=== PATIENT | female | born 2000 | race Caucasian/White ===

== ENCOUNTER 2020-06-16 22:04 | Emergency (ER) | payer SELFPAY ==
[2020-06-16 22:06] VITALS: BP 146/90; PULSE 84; RESP 18; TEMP 36.4; O2SAT 100
--- NOTE | 2020-06-16 22:43 | ED.DENTAL ---
HPI - Dental/Oral General Chief complaint: Dental/Oral Stated complaint: dental pain Time Seen by Provider: 06/16/20 22:38 Source: RN notes reviewed History of Present Illness HPI Narrative: Patient presents emergency department from home for dental pain. Patient states she is a carious right upper molar that is been hurting since yesterday. She denies any trauma or injury to the area states she tried taking Tylenol ibuprofen at home with last dose at noon today with no relief patient denies any fever chills vision changes or any other symptoms states she is allergic to penicillin and has had to be on clindamycin before in the past for dental abscess patient states she is currently on Flagyl for diagnosed with bacterial vaginosis denies Review of Systems Review of Systems: Narrative: Gen.: Denies fevers or chills HEENT: See HPI Neuro: Denies numbness, tingling, weakness Skin: Denies rash Endo: Denies DM PMFSH Past Medical History Medical History (Updated 06/16/20 @ 22:45 by Jacky Najera DO) Patient denies significant medical history Social History Social History (Updated 06/16/20 @ 22:44 by Jacky Najera DO) Smoking status: Never smoker Exam Narrative: Exam Narrative: APPEARANCE: No acute distress, nontoxic, resting in bed HEENT: Normocephalic, atraumatic, TMs clear bilaterally, nares patent, oral mucosa moist, airway patent, tooth #1 is carious and tender palpation mild erythema of the gum with no fluctuance there is no overlying swelling facial swelling or erythema RESPIRATORY: No respiratory distress MUSCULOSKELETAl: Moves all extremities. NEURO: Awake and alert. Following commands, speech normal, no focal deficits SKIN:: Warm, dry. Normal Color PSYCHIATRIC: Normal affect/mood Course Course Emergency Course: Discussed with patient results of workup and diagnosis. Discussed need for follow-up with primary care, proper use of medication, and reasons to return to the emergency department. Patient understands and agrees to current treatment plan Vital Signs Vital signs: Vital Signs Temperature 97.5 F L 06/16/20 22:06 Pulse Rate 84 06/16/20 22:06 Respiratory Rate 18 06/16/20 22:06 Blood Pressure 146/90 H 06/16/20 22:06 Pulse Oximetry 100 06/16/20 22:06 Temperature 97.5 F L 06/16/20 22:06 Pulse Rate 84 06/16/20 22:06 Respiratory Rate 18 06/16/20 22:06 Blood Pressure 146/90 H 06/16/20 22:06 Pulse Oximetry 100 06/16/20 22:06 Discharge Plan Discharge Clinical Impression: Dental abscess Patient Disposition: Home, Self-Care Condition: Stable Instructions: Antibiotic Form, Dental Abscess (ED) Additional Instructions: Return for increasing pain fever or any other symptoms of concern Prescriptions: New clindamycin HCl 300 mg capsule 300 mg PO Q8H Qty: 30 RF: 0 ibuprofen [IBU] 600 mg tablet 600 mg PO Q6H PRN (Reason: pain) Qty: 10 RF: 0 Follow-up/Referrals: [facility] [place] [Outside] - 2 Days [facility] [Outside] - 2 Days PHYSICIAN NOT ON STAFF,NONSTAFF [Primary Care Provider] - Stand Alone Forms: Work/School Release IP Time of Disposition: 22:46
[2020-06-16] MEDS: CLINDAMYCIN HCL 150 MG CAP 300 MG PO (22:50)
[2020-06-16] MEDS: IBUPROFEN 600 MG TABLET PO (22:50)
== END 2020-06-16 23:07 | disposition home or self-care (01) ==
LOC: ANHED 22:54
PROVIDERS: Emergency Provider Emergency Medicine
DX: K04.7 Periapical abscess without sinus (principal)
CPT/HCPCS: 99283; A9270

== ENCOUNTER 2020-07-11 11:23 | Outpatient (CLI) | payer OTHER, SELFPAY ==
--- NOTE | ~2020-07-11 | US_ITS ---
EXAMINATION: US pelvic complete EXAM DATE: 07/11/2020 11:41 INDICATION: N91.2 Amenorrhea, unspecified. TECHNIQUE: Pelvic transabdominal sonogram was performed. There are multiple grayscale and Doppler im ages available for interpretation. There is no prior study for comparison. FINDINGS: Uterus measures 7.8 x 3.2 x 4.7 cm, and is morphologically normal. Endometrial stripe nkechi sures 6 mm, within normal limits. There is no free pelvic fluid. Right adnexa: The ovary measures 3.7 x 2.2 x 3.1 cm and is morphologically normal. Ovarian vascular f low confirmed. Left adnexa: The ovary measures 2.4 x 1.8 x 2.6 cm and is morphologically normal. Ovarian vascular fl ow confirmed. IMPRESSION: Unremarkable pelvic ultrasound exam. Reviewed, dictated and finalized at location A.
== END 2020-07-11 11:24 ==
PROVIDERS: Visit Provider Nurse Practitioner
DX: N91.2 Amenorrhea, unspecified (principal)
CPT/HCPCS: 76856

== ENCOUNTER 2021-08-01 13:05 | Emergency (ER) | payer BC, SELFPAY ==
--- NOTE | ~2021-08-01 | XR_ITS ---
EXAMINATION: XR chest 2V DATE: 08/01/2021 13:35 INDICATION: Midsternal chest pain. TECHNIQUE: Frontal and lateral views of the chest were obtained. COMPARISON: None. FINDINGS: The chest demonstrates clear lungs without pneumonia, pleural effusion, or pneumothorax. Th e heart size is normal. IMPRESSION: 1. No acute cardiopulmonary disease. Reviewed, dictated and finalized at location A.
--- NOTE | 2021-08-01 13:07 | ECG_ITS ---
Measurements Intervals [place] Rate: 75 P: 12 MT: 167 QRS: 38 QRSD: 85 T: 23 QT: 350 QTc: 391 Interpretive Statements SINUS RHYTHM NORMAL ECG Electronically Signed On 08-01-2021 13:20:52 CDT by Ponce Sandoval D.O.
[2021-08-01 14:38] LABS: Basophils Percent Auto 0.2 % (0.2-1.2); Eosinophils Absolute Auto 0.1 K/mm3 (0-0.3); Eosinophils Percent Auto 1.4 % (0-4.4); Hematocrit 40.6 % (37.0-47.0); Hemoglobin 12.9 g/dL (12.0-15.0); Immature Granulocyte Absolute 0.02 K/mm3 (0.00-0.031); Immature Granulocyte Percent A 0.2 % (0-0.5); Lymphocytes Absolute Auto 3.72 K/mm3 (0.9-3.2); Lymphocytes Percent Auto 44.7 % (18.3-44.2); Mean Corpuscular HGB Conc 31.8 g/dl (32-36); Mean Corpuscular Hemoglobin 30.7 pg (26-34); Mean Corpuscular Volume 96.7 fl (80-100); Mean Platelet Volume 10.3 fl (7.4-10.4); Monocytes Absolute Auto 0.5 K/mm3 (0.1-0.6); Monocytes Percent Auto 5.9 % (2.6-8.5); Neutrophils Percent Auto 47.6 % (45.5-73.1); Platelet Count Result 338 k/mm3 (150-375); Red Cell Distribution Width 12.4 % (11.5-14.5); White Blood Count 8.3 K/mm3 (4.5-10.0)
[2021-08-01 14:50] LABS: Alanine Aminotransferase 37 U/L (4-35); Albumin Level 4.5 g/dL (3.5-5.1); Alkaline Phosphatase 86 U/L (38-126); Anion Gap 7 mmol/L (8-16); Aspartate Amino Transferase 37 U/L (14-36); Bilirubin,Total 0.3 mg/dL (0.2-1.3); Blood Urea Nitrogen 12 mg/dL (7-17); Calcium 10.3 mg/dL (8.4-10.2); Carbon Dioxide 27 mmol/L (22-30); Chloride 104 mmol/L (98-107); Estimated CRCL calculation 148 ml/min; Estimated Glomerular Filt Rate > 60; Glucose 101 mg/dL (65-110); Lipase 69 U/L (23-300); Potassium 4.2 mmol/L (3.4-5.0); Sodium 138 mmol/L (137-145)
[2021-08-01 15:00] LABS: Troponin I < 0.012 ng/mL (0.000-0.034)
[2021-08-01 15:01] LABS: INR 1.1; Prothrombin Time 14.1 Seconds (11.1-14.7)
[2021-08-01 15:02] LABS: Partial Thromboplastin Time 27.7 SECONDS (22.3-36.8)
[2021-08-01 15:35] VITALS: BP 119/80; PULSE 101; PULSE 80; RESP 18; TEMP 36.9; O2SAT 99
--- NOTE | 2021-08-01 15:58 | ED.CHESTPAIN ---
HPI - Chest Pain General Chief Complaint: Chest Pain Stated Complaint: chest pain Time Seen by Provider: 08/01/21 15:13 Source: patient and RN notes reviewed Mode of arrival: ambulatory Limitations: no limitations History of Present Illness HPI narrative: 20-year-old female presenting to the emergency department for evaluation of epigastric and chest pain which she describes as a pressure and tightness. Patient states that she has no prior history of coronary artery disease and denies any prior history of PE or DVT. Patient states that 2 days ago she started a drastic diet and did take supplementary magnesium citrate and potassium. Patient states since starting the new diet that she has had these symptoms. Patient also reported some exertional shortness of breath. Patient denies any significant past medical history. Related Data Allergies Allergy/AdvReac Type Severity Reaction Status Date / Time albuterol Allergy Swelling Verified 08/01/21 15:38 of Lip/Tongue/Throat Penicillins Allergy Difficulty Verified 08/01/21 15:38 Breathing Review of Systems Review of Systems: CONSTITUTIONAL: Denies fever, chills, or sweats. EYES: Denies visual changes, redness, or discharge. ENT: Denies rhinorrhea, congestion, sore throat, or otalgia. CARDIOVASCULAR: See HPI RESPIRATORY: Denies cough or dyspnea. GASTROINTESTINAL: Nausea without vomiting, see HPI GENITOURINARY: Denies dysuria or hematuria. SKIN: Denies rash or itching. MUSCULOSKELETAL: Right lower extremity edema, normal for baseline. NEUROLOGIC: Denies headache, numbness, or weakness. PMFSH Past Medical History Medical History (Updated 08/01/21 @ 17:44 by Sumit Davidson MD) Patient denies significant medical history Social History Social History (Updated 06/16/20 @ 22:44 by Jacky Najera DO) Smoking status: Never smoker Exam Narrative: APPEARANCE: Well appearing, no pain, no distress, well-nourished. HEAD: normocephalic, atraumatic. EYES: PERRLA/EOMI, conjunctivae clear. NOSE: Normal no drainage THROAT: Pharynx clear, no exudate. NECK: Supple. No adenopathy, no masses. RESPIRATORY: Airway patent, respirations nonlabored. Clear to auscultation bilaterally, no rales, rhonchi, wheezing. CARDIOVASCULAR: Regular rate and rhythm without murmurs rubs or gallops. ABDOMINAL: Soft, nontender, nondistended, normal bowel sounds MUSCULOSKELETAL: Moves all extremities. Strength/ROM intact, No edema, No calf tenderness. NEURO: Alert. Cranial nerves II through XII intact. Grossly intact SKIN: Warm, dry. Normal Color Course Course Emergency Course: Patient did feel improved with treatment. Patient did have normal EKG, chest x-ray showed no acute finding. Serial troponins were negative. Vital Signs Vital signs: Vital Signs Temperature 98.4 F 08/01/21 15:35 Pulse Rate 101 H 08/01/21 15:35 Respiratory Rate 18 08/01/21 15:35 Blood Pressure 119/80 08/01/21 15:35 Pulse Oximetry 99 08/01/21 15:35 Temperature 98.4 F 08/01/21 15:35 Pulse Rate 80 08/01/21 15:35 Respiratory Rate 18 08/01/21 15:35 Blood Pressure 119/80 08/01/21 15:35 Pulse Oximetry 99 08/01/21 15:35 MDM - Chest Pain Differential Diagnosis Differential diagnosis: Likely atypical chest pain Lab Data Attestation: I reviewed the patient's lab results. Result diagrams: 08/01/21 14:25 08/01/21 14:25 Labs: Lab Results 08/01/21 08/01/21 08/01/21 Range/Units 14:25 14:25 14:25 WBC 8.3 (4.5-10.0) K/mm3 RBC 4.20 (4.2-5.4) M/mm3 Hgb 12.9 (12.0-15.0) g/dL Hct 40.6 (37.0-47.0) % MCV 96.7 (80-100) fl MCH 30.7 (26-34) pg MCHC 31.8 L (32-36) g/dl RDW 12.4 (11.5-14.5) % Plt Count 338 (150-375) k/mm3 MPV 10.3 (7.4-10.4) fl Immature Gran % (Auto) 0.2 (0-0.5) % Neut % (Auto) 47.6 (45.5-73.1) % Lymph % (Auto) 44.7 H (18.3-44.2) % Boundary % (Auto) 5.9 (2.6-8.5) % Eos
[2021-08-01 16:42] LABS: D Dimer < 0.27 ug/mL (<0.48)
[2021-08-01 17:20] LABS: Troponin I < 0.012 ng/mL (0.000-0.034)
[2021-08-01 18:55] VITALS: BP 121/76; PULSE 78; RESP 18; O2SAT 100
== END 2021-08-01 18:55 | disposition home or self-care (01) ==
PROVIDERS: Emergency Medicine; Emergency Provider Emergency Medicine
DX: R10.13 Epigastric pain (principal)
CPT/HCPCS: 36415; 71046; 80053; 83690; 84484; 85025; 85380; 85610; 85730; 93005; 99284

== ENCOUNTER 2022-01-05 13:23 | Emergency (ER) | payer BC, SELFPAY ==
--- NOTE | ~2022-01-05 | XR_ITS ---
EXAMINATION: XR ankle RT min 3V INDICATION: Right ankle pain TECHNIQUE: Four views of the right ankle are obtained. COMPARISON: None available FINDINGS: There is plate and screw fixation in the lateral aspect of the distal fibula. Bone alignmen t is normal. There is a tiny heterotopic osseous fragment distal to the medial malleolus. Ankle morti se is intact. IMPRESSION: 1. Tiny heterotopic osseous fragment distal to the medial malleolus with an appearance suggestive of prior avulsion injury. Reviewed, dictated and finalized at location A. IMPRESSION: 1. Tiny heterotopic osseous fragment distal to the medial malleolus with an varghese earance suggestive of prior avulsion injury.
[2022-01-05 13:37] VITALS: BP 135/85; PULSE 99; RESP 18; TEMP 36.4; O2SAT 100
--- NOTE | 2022-01-05 16:29 | ED.EXTPRO ---
HPI - Extremity Problem General Chief complaint: Extremity Problem,Nontraumatic Stated complaint: R ANKLE PAIN Time Seen by Provider: 01/05/22 15:51 Source: patient Mode of arrival: ambulatory Limitations: no limitations History of Present Illness HPI Narrative: Patient is a 21 y/o female who presents to the ED with c/o R ankle pain. Patient reports she was at work last night and frequently walks up and down stairs. She woke up this morning with pain in her right anteromedial ankle. No definitive injury. No abnormal twisting that she is aware of. Previous R ankle ORIF several years ago. No numbness/tingling. No significant swelling. She is able to ambulate but has pain with this. Related Data Allergies Allergy/AdvReac Type Severity Reaction Status Date / Time albuterol Allergy Swelling Verified 01/05/22 16:18 of Lip/Tongue/Throat Penicillins Allergy Difficulty Verified 01/05/22 16:18 Breathing Review of Systems Review of Systems: CONSTITUTIONAL: Denies fever, chills, or sweats. SKIN: Denies R ankle swelling. MUSCULOSKELETAL: Reports R ankle pain. NEUROLOGIC: Denies tingling, numbness, or weakness. All systems reviewed & are unremarkable except as noted in HPI and below PMFSH Past Medical History Medical History (Updated 01/05/22 @ 17:20 by Nano Oreilly PA-C) No pertinent past medical history Surgical History Surgical History (Updated 01/05/22 @ 17:20 by Nano Oreilly PA-C) Status post ORIF of fracture of ankle Social History Social History Smoking status: Never smoker Exam Narrative: GENERAL: Well appearing, morbidly obese, non-toxic, in no acute distress. HEAD: Normocephalic, atraumatic. NECK: Supple. No adenopathy, no masses. RESPIRATORY: Airway patent, respirations nonlabored. Clear to auscultation bilaterally, no rales, rhonchi, wheezing. CARDIOVASCULAR: Regular rate and rhythm without murmurs, rubs, or gallops. Peripheral pulses 2+ and equal bilaterally. MUSCULOSKELETAL: Moves all extremities. Strength/ROM intact without gross deformities. Mild limited ROM of R ankle due to pain. TTP over R anterior and medial ankle, with direct tenderness over medial malleolus. No tenderness along metatarsals, Achilles tendon, calf, anterior knee. SKIN: Warm, dry, normal color. No rashes. NEURO: A&O X3. Speech clear. Cranial nerves II-XII grossly intact. No ataxic movements. PSYCHIATRIC: Appropriate mood and affect. Normal interaction. Course Vital Signs Vital signs: Vital Signs Temperature 97.6 F 01/05/22 13:37 Pulse Rate 99 01/05/22 13:37 Respiratory Rate 18 01/05/22 13:37 Blood Pressure 135/85 01/05/22 13:37 Pulse Oximetry 100 01/05/22 13:37 Oxygen Delivery Room Air 01/05/22 13:37 Temperature 97.6 F 01/05/22 13:37 Pulse Rate 99 01/05/22 13:37 Respiratory Rate 18 01/05/22 13:37 Blood Pressure 135/85 01/05/22 13:37 Pulse Oximetry 100 01/05/22 13:37 Oxygen Delivery Room Air 01/05/22 13:37 MDM - Extremity (Nontraumatic) MDM Narrative Medical decision making narrative: Patient presented to ED with acute onset of right ankle pain upon waking this morning. No known injury. Tenderness over anterior medial ankle. Neurovascularly intact. No signs of compartment syndrome. X-ray obtained showing abnormality of medial malleoli, suggestive of avulsion injury. I discussed with Dr. Way who reported difficult to determine acute versus chronic, but if patient has tenderness in that region, would consider acute. Patient does have direct tenderness over medial malleoli. Discussed recommendation to place patient in a splint for further fracture management. Patient refused a splint at this time as she has to drive home and does not have a ride otherwise. She will sign AMA paperwork for refusing splint however I will still provide orthopedic follow-up information and discharge packet. Meredith
== END 2022-01-05 17:20 | disposition home or self-care (01) ==
LOC: ANHED 17:08
PROVIDERS: Emergency Provider Emergency Medicine
DX: S82.51XA Displaced fracture of medial malleolus of right tibia, initial encounter for closed fracture (principal); X58.XXXA Exposure to other specified factors, initial encounter
CPT/HCPCS: 73610; 99283; 99284

== ENCOUNTER 2023-09-09 21:59 | Emergency (ER) | payer BC, SELFPAY ==
--- NOTE | ~2023-09-09 | XR_ITS ---
XR hand RT min 3V Ordering provider: Petra Miguel MD History: . pain, injury . Comparison: None. FINDINGS: BONES: No acute fracture or dislocation. JOINT SPACES: Well maintained. SOFT TISSUES: Unremarkable. IMPRESSION: No acute osseous abnormality right hand. Reviewed, dictated and finalized at location A.
[2023-09-09 22:02] VITALS: BP 145/92; PULSE 110; RESP 20; TEMP 36.2; O2SAT 100
--- NOTE | 2023-09-09 23:23 | ED.GENADULT ---
HPI - General Adult General Chief complaint: Extremity Injury, Upper Stated complaint: hand injury Time Seen by Provider: 09/09/23 23:22 History of Present Illness HPI narrative: Patient is a 22-year-old female who presents to the emergency department this evening complaining of right thumb pain. Patient states that she was using a staple alert at work and thinks she may have hyperextended her right thumb. Shortly after patient started to have some pain. Denies any falls or recent trauma. Patient is currently able to fully extend and flex her right thumb without any difficulty. Related Data Allergies Allergy/AdvReac Type Severity Reaction Status Date / Time albuterol Allergy Swelling Verified 01/07/22 13:28 of Lip/Tongue/Throat Penicillins Allergy Difficulty Verified 01/07/22 13:28 Breathing Sulfa (Sulfonamide Allergy Hives Verified 09/09/23 22:19 Antibiotics) Review of Systems Review of Systems: All systems are reviewed and are negative unless stated otherwise in the HPI. ON LICENSE OF [facility] Past Medical History Medical History No pertinent past medical history Surgical History Surgical History H/O eye surgery History of ankle surgery (~2019) right ankle Status post ORIF of fracture of ankle Social History Social History Smoking status: Never smoker Alcohol intake: never Substance use: never Exam Narrative: General: Alert, awake, afebrile, in no acute distress. HEENT: PERRL, no rhinorrhea, no post nasal drip, oropharynx clear. Cardiovascular: Regular rate and rhythm, no murmurs, rubs or gallops, no peripheral edema. Respiratory: Clear to auscultation bilaterally, no tachypnea, no wheezing, no rhonchi, no rubs, no respiratory distress. Abdomen: Soft, nontender, nondistended, no rebound, no guarding, no peritoneal signs. Musculoskeletal: No tenderness to palpation over the right anatomical snuffbox, intact flexion and extension at the 1st digit PIP and the IP joints, no swelling noted. Skin: No rashes or petechia, no signs of infection. Neurological: Alert and oriented to person, place, and time. Follows all commands. No focal deficits, speech is clear and fluent. Course Vital Signs Vital signs: Vital Signs Temperature 97.1 F L 09/09/23 22:02 Pulse Rate 110 H 09/09/23 22:02 Respiratory Rate 20 09/09/23 22:02 Blood Pressure 145/92 H 09/09/23 22:02 Pulse Oximetry 100 09/09/23 22:02 Oxygen Delivery Room Air 09/09/23 22:02 Temperature 97.1 F L 09/09/23 22:02 Pulse Rate 110 H 09/09/23 22:02 Respiratory Rate 20 09/09/23 22:02 Blood Pressure 145/92 H 09/09/23 22:02 Pulse Oximetry 100 09/09/23 22:02 Oxygen Delivery Room Air 09/09/23 22:02 Medical Decision Making MDM Narrative Medical decision making narrative: The patient was evaluated by myself in the emergency department. History is obtained from patient who is an independent historian and physical exam was performed. External medical records were reviewed at this time. Imaging studies obtained included right hand x-ray which was independently interpreted by me revealing no acute process, which is pending final radiology interpretation. Differential diagnosis considerations include sprain versus fracture. Comorbidities impacting this visit include none. I have evaluated and discussed social determinants of health with the patient that could potentially impact subsequent diagnosis and treatment plans. On repeat assessment of the patient, reevaluation revealed that the patient is doing well and is in no acute distress. Patient symptoms have improved since she arrived to our emergency department. Repeat vital signs were all reviewed and noted to be stable. Differential diagnosis and treatment plan were discussed with the cassandra
[2023-09-09 23:35] VITALS: BP 141/84; PULSE 91; RESP 14; O2SAT 99
== END 2023-09-09 23:36 | disposition home or self-care (01) ==
PROVIDERS: Emergency Provider Emergency Medicine
DX: S63.601A Unspecified sprain of right thumb, initial encounter (principal); X50.9XXA Other and unspecified overexertion or strenuous movements or postures, initial encounter
CPT/HCPCS: 73130; 99283

== ENCOUNTER 2024-05-16 21:36 | Emergency (ER) | payer BC, SELFPAY ==
--- NOTE | ~2024-05-16 | XR_ITS ---
EXAM: XR shoulder RT min 2V, XR humerus RT DATE: 05/16/2024 22:37 HISTORY: fall from car, R shoulder pain . COMPARISON: None available. FINDINGS: Normal mineralization. No fracture or dislocation. No lytic or blastic lesion. Joint space s are maintained. No erosion or periosteal change. Soft tissues within normal limits. IMPRESSION: No acute osseous finding in the right shoulder or right humerus. Reviewed, dictated and finalized at location K. K CARRIER IMPRESSION: No acute osseous finding in the right shoulder or right humerus.
--- OUTSIDE RECORDS SUMMARY | 2024-05-16 21:38 | XMS_ITS | Data Portability ---
Author Organization [facility] Address [address] [place] [address] Assessment No assessment recorded. Plan of Treatment Reminders Order Date Submit Date Provider Last Modified By Organization Details Last Modified Time Details Appointments None recorded. Lab venipunctu re 2017 018 [place] [address] Main Office, [address] [place] [address], [phone], 8 08:31:45 chlamydia + gonorrhea DNA panel, unspecifie d specimen 2017 018 [facility] Main Office, [address] [place] [address], [phone], 8 12:10:30 test, urine 2017 018 [facility] Main Office, [address] [place] [address], [phone], 8 12:10:30 Referral None recorded. Procedures None recorded. Surgeries None recorded. Imaging None recorded. Medication Orders metronidaz ole 500 mg tablet 2020 021 acasolari [facility], [address] [place], [address], 2 11:34:22 citalopram 20 mg tablet 2018 019 an[facility] [address] [place], [address], 17:01:10 buspirone 5 mg tablet [address] [facility] [address], [address] [place], [address], 17:01:05 Patient TargetsNo targets recorded. Patient InstructionsNo instructions recorded. Reason for Referral None Reported. Results Created Date Observation Date Name Description Value Unit Range Abnormal Flag Note LastModifiedBy Organization Detail LastModifiedTime 01/22/20 18 01/21/2018 pregn marce test, urine HCG negati ve Not Available Main Office [address] [place] [address], [phone], 01/21/2018 09:15:13 Result Notes None recorded. Problems No Known Problems Procedures Surgical History Date Name Laterality Status Provider Name and Address Organization Details Recorded Time 0 procedure on foot completed Alondra Zambrano [facility] 06/10/2020 17:02:27 Eye Surgery completed Haley Ray [facility] 01/21/2018 09:09:09 Imaging Results None recorded. Procedure Notes None recorded. Medical Equipment None Reported. Allergies Allergen ID Allergen Name Allergen Category Reaction Reaction Severity Criticality Documentation Date Start Date Code Code System Note Provider Name and Address Organization Details Recorded Time 1192 Substance with sulfonami de structure and antibacte rial mechanism of action (substanc e) medicatio n Not available Not available Not available 01/21/2018 67074 8003 [facility] 09:[facility]20 1193 Product containin g penicilli n (product) medicatio n Not available Not available Not available 01/21/2018 12156 8001 [facility] 8 09:08:26 1194 albuterol medicatio n Not available Not available Not available 01/21/2018 435 RxNorm Haley mello [facility] 8 09:08:32 Medications Name Sig Start Date Stop Date Status Note LastModified by Organization Details LastModified Time buspirone 5 mg tablet Take 1 tablet twice a day by oral route. 06/10 completed Not Available Not Available Not Available clindamycin HCl 300 mg capsule TAKE 1 CAPSULE BY MOUTH EVERY 8 HOURS 10/07 completed Not Available Not Available Not Available azithromyci n 250 mg tablet TAKE 2 TABLETS BY MOUTH ON DAY 1 AND THEN TAKE 1 TABLET BY MOUTH ONCE A DAY ON DAY 2 THROUGH DAY 5 06/10 completed Not Available Not Available Not Available fluconazole 150 mg tablet TAKE ONE TABLET BY MOUTH ONCE AND REPEAT IN 72 HOURS IF SYMPTOMS PERSIST 06/10 completed Not Available Not Available Not Available metronidazo le 500 mg tablet TAKE 1 TABLET BY MOUTH EVERY 12 HOURS FOR 7 DAYS 10/07 completed Not Available Not Available Not Available Microgestin FE / (28) 1 mg-20 mcg (21)/75 mg (7) tablet Take 1 tablet every day by oral route. 07/08 completed Not Available Not Available Not Available citalopram 20 mg tablet Take 1 tablet every day by oral route. 06/10 completed Not Available Not Available Not Available metformin ER 500 mg tablet,exte nded release 24 hr Take 1 tablet every day by oral route. 07/08 completed Not Available Not Available Not Available Sprintec (28) 0.25 mg-35 mcg tablet TAKE 1 TABLET BY MOUTH ONCE DAILY 06/10 completed Not Available Not Available Not Available Vitamin B12 06/10 completed Not Available Not Available Not Available Vitals Date Recorded Body weight Body temperature Heart rate Respiratory rate Oxygen saturation Oxygen saturation in Arterial blood by Pulse oximetry Systolic blood pressure Diastolic blood pressure Provider Name and Address Organization Details Last Updated DateTime 1 676665. 02 g 97.6 [degF] 85 /min 20 /min 98 % 98 % 138 mm[Hg] 89 mm[Hg] Alondra Zambrano [facility] 1 16:59:50 Date Recorded Body mass index (BMI) Body height Provider Name and Address Organization Details Last Updated DateTime 06/10/2020 43.3 kg/m2 165.1 cm Micki Hanson APN [address] [place], [phone] [place] [address] 06/10/2020 22:57:24 Date Recorded Body height Body mass index (BMI) Body weight Heart rate Respiratory rate Body temperature Oxygen saturation Oxygen saturation in Arterial blood by Pulse oximetry Systolic blood pressure Diastolic blood pressure Provider Name and Address Organization Details Last Updated DateTime 8 165.1 cm 39.8 kg/m2 941973. 58 g 96 /min 20 /min 97.9 [degF] 99 % 99 % 130 mm[Hg] 84 mm[Hg] Haley Ray [facility] 8 09:07:49 Date Recorded Body weight Provider Name an d Address Organization Details Last Updated DateTime 10/07/2021 348989.61 g Ayanna Garcianman [facility] 10/07/2021 11:04:41 Date Recorded Body height Body mass index (BMI) Percentile per age and sex Body mass index (BMI) Body weight Heart rate Respiratory rate Body temperature Oxygen saturation Oxygen saturation in Arterial blood by Pulse oximetry Systolic blood pressure Diastolic blood pressure Provider Name and Address Organization Details Last Updated DateTime 9 165.1 cm 99 % 41 kg/m2 169721. 44 g 103 /min 20 /min 97.8 [degF] 98 % 98 % 118 mm[Hg] 68 mm[Hg] Haley Ray [facility] 9 10:15:31 Social History Question Answer Notes LastModified by Organizat ion Details LastModified Time Tobacco Smoking Status Never Smoker Haley Ray [facility] 01/21/2018 09:08:58 What Is Your Level Of Alcohol Consumption? None Information not available 06/10/2020 What Is Your Level Of Caffeine Consumption? Occasional Information not available 06/10/2020 How Much Tobacco Do You Chew? None Information not available 06/10/2020 Are You Currently Employed? Yes Information not available 06/10/2020 Do You Or Have You Ever Used E-cigarettes Or Vape? Never Used Electronic Cigarettes Information not available 06/10/2020 Live Alone Or With Others? With Others Information not available 06/10/2020 What Was The Date Of Your Most Recent Tobacco Screening? 01/21/2018 Information not available 10/20/2018 Do You Or Have You Ever Used Smokeless Tobacco? Never Used Smokeless Tobacco Information not available 06/10/2020 Sex: Unknown Functional Status Question Answer Note LastModified by Organization D etails LastModified Time Are you able to care for yourself? Yes Information n ot available 06/10/2020 Mental Status None recorded. Family History Nothing Reported. Medical History No medical history recorded. Gynecological History Statement/Question Response Flow Heavy Date of LMP 09/07/2020 Menses Monthly N Date of Last Pap Smear Current Control Method None Age at Menarche 11 Obstetrics History GPAL:G 0 P 0 0 0 0 Immunizations Vaccine Type Date Status Note Provider Nam e and Address Organization Details Recorded Time IPV 3 completed Alondra mello, [place] - [facility] 06/10/2020 17:00:48 varicella 4 completed Ayanna mello, [place] - [facility] 10/07/2021 11:04:58 Meningococcal MCV4O 7 completed Ayanna Guadalupe null, [place] - [facility] 10/07/2021 11:04:58 HPV9 7 completed [place] - [facility] 10/07/2021 11:04:58 pneumococcal conjugate PCV 7 1 completed Alondra mello, [place] - [facility] 06/10/2020 17:00:48 DTaP 0 completed Alondra Zambr[place] [facility] 06/10/2020 17:00:48 Hib-Hep B 0 completed Alond[place]br[place] [facility] 06/10/2020 17:00:48 Hep A, ped/adol, 2 dose 7 completed Ayanna [place] - [facility] 10/07/2021 11:04:58 HPV9 8 completed [place] [facility] 10/07/2021 11:04:58 IPV 9 completed Alnodra N[place] [facility] 06/10/2020 17:00:48 HPV9 7 completed Ay[place] [facility] 10/07/2021 11:04:58 Hib-Hep B 0 completed Alondra [place] [facility] 06/10/2020 17:00:48 Hep A, ped/adol, 2 dose 8 completed Ayanna [place] [facility] 10/07/2021 11:04:58 DTaP 9 completed Alondra [place] [facility] 06/10/2020 17:00:48 Influenza, split virus, quadrivalent, preservative 7 completed Ayanna [place] [facility] 10/07/2021 11:04:58 MMR 0 completed Alondra [place] [facility] 06/10/2020 17:00:48 Hib-Hep B 9 completed [place]ond[place] [facility] 06/10/2020 17:00:48 IPV 0 completed Alond[place] [facility] 06/10/2020 17:00:48 varicella 3 completed Alond[place] [facility] 06/10/2020 17:00:48 pneumococcal conjugate PCV 7 1 completed Alond[place] [facility] 06/10/2020 17:00:48 DTaP 0 completed [place] [facility] 06/10/2020 17:00:48 IPV 0 completed [place] [facility] 06/10/2020 17:00:48 DTaP 3 completed [place] [facility] 06/10/2020 17:00:48 MMR 3 completed [place] [facility] 06/10/2020 17:00:48 DTaP 0 completed [place] [facility] 06/10/2020 17:00:48 meningococcal B, OMV 7 completed [place] [facility] 10/07/2021 11:04:58 meningococcal B, OMV 7 completed Ay[place]ajodee [place] [facility] 10/07/2021 11:04:58 Tdap 3 completed Ay[place] [facility] 10/07/2021 11:04:58 meningococcal MCV4P 4 completed [place] [facility] 10/07/2021 11:04:58 COVID-19, mRNA, LNP-S, PF, 30 mcg/0.3 mL dose 1 completed Lina Daugherty APN [address] [place] [address], [phone], [place] - [facility] 10/07/2021 11:42:35 COVID-19, mRNA, LNP-S, PF, 30 mcg/0.3 mL dose 1 completed Lina Daugherty APN [address] [place] [address], [phone], [place] - [facility] 10/07/2021 11:42:36 Past Encounters Encounter ID Performer Location Encounter Start Date Encounter Closed Date Diagnosis/Indication Diagnosis SNOMED-CT Code Diagnosis ICD10 Code Diagnosis Note [id number] Micki Hanson APN Main Office [address] [place] [address] 01/21/2018 08:57:10 01/21/2018 10:29:26 Amenorrhea 55622246 N91.1 Reviewed reasons why pt might be experienci ng amenorrhea . test negative. Will order STI testing at this time as well and notify pt when results are available. Pt to f/u if sx worsen or do not improve. Pt verbalized understand ing. Venereal d isease screening 234334441 Z11.3 [id number] Micki Hanson APN Main Office [address] [place] [phone] 01/26/2018 11:52:06 01/26/2018 12:01:17 Amenorrhea 96727457 N91.1 [id number] Micki Hanson APN Main Office [address] [place] [phone] 07/08/2018 10:10:13 07/08/2018 11:08:19 Generalized anxiety disorder 78583184 F41.1 Discussed the many stressors that pt is experienci ng and that many changes need to be made to decrease anxiety and stress level. Will order buspirone to better help pt cope with anxiety. Discussed how to take medication as well as possible side effects. Pt agreeable. Moderate r ecurrent major depression 57209517 F33.1 Had a lengthy discussion with pt regarding the need for stress reduction, relaxation techniques , and healthy coping strategies . Discussed options such as medication classes as well as counseling . Pt is interested in medication at this time. Will start pt on citalopram . Reviewed how to take medication as well as possible side effects. Pt verbalized understand ing and agreement with POC. Pt to f/u in 6 weeks or sooner if needed. [id number] Micki Hanson APN Main Office [address] [place] [address] 06/10/2020 16:49:46 06/10/2020 23:04:16 Acute pelvic pain 337315010 R10.2 Discussed possible causes of pelvic pain with pt. Since pt is a self pay pt, advised that she get OTC test to be more cost effective. Recommende d that she start a vitamin daily and advised on why. Will order metronidaz ole at this time. Discussed how to take medication as well as possible side effects. Pt to f/u if symptoms worsen or do not improve. Constipation 85390542 K5 9.00 Discussed ways to improve constipati on symptoms. Stressed the importance of healthy diet, increasing water, exercising , eating fiber rich diet. Discussed OTC options to help as well, including taking a probiotic daily. Pt to f/u if symptoms worsen or do not improve. Irregular periods 026699 07 N92.6 Discussed possible causes for irregular periods including increased stress, changes to diet or exercise, obesity, etc. If periods do not improve after 3-4 cycles will consider additional workup. Advised on vitamin, using protection if wanting to prevent , as well as healthy lifestyle changes to improve cycles. Pt verbalized understand ing. [id number] Lina Daugherty APN Main Office [address] [place] [id number] 10/07/2021 11:03:27 10/07/2021 16:41:54 Irregular periods 90291395 N92.6 Discussed various causes of irregular menses including stress, diet, hormones, medication s, weight loss, etc and all questions answered.R ecommended some labs and pelvic US, pt states she wishes to wait one more week, since her menses is lightening up, and see if s/s resolved, and will call us back in one week if she wishes to purse additional testing. She is self pay.Ibupro fen/Tyleno l/heating pad to continue prn for symptomati c relief.Pt instructed on worsening s/s and when to go to local ER or call us back.She agrees with plans. Health Concerns Section Related Observation LastModified by Organization Detai ls LastModified Time None Recorded Concern Status LastModified by Organization Details LastModified Time None Recorded Advance Directives Directive None Recorded Payers Encounter Date Sequence Insurance Name Policy Number Policy Carreon Covered Member ID Carreon Member ID Guarantor Name 01/21/2018 1 [facility] (MEDICAID HMO) [facility] Racquel Hale [id number] Marleni Hale 01/26/2018 1 [facility] (MEDICAID HMO) [facility] E Marleni Hale [id number] Marleni Hale 07/08/2018 SLIDING FEE SCHEDULE - DISCOUNT Marleni Hale Notes Date Note Type Note Provider Name and Address Organization Details Recorded Time 01/21/2018 text/html Abnormal BleedingReported bypatient.Quality:spot ting Associated Symptoms:no dysmenorrhea; no anemia/iron supplements; no shortness of breath; no CP/palpitations;pelvic pain;abdominal pain;fatigue;bloating; change in bowel function(constipation) ;change in urinary function;vaginal discharge;vaginal itching/irritationAmen orrheaReported bypatient.Onset/Timing :no menses for 2-3 months Duration:menses normal 3-7 days Quality:skips; heavy periods Context:negative test Associated Symptoms:no breast tenderness; no vomiting; no new visual changes;nausea;headach es; bilateral lower quadrant pain Pt presents today for amenorrhea. Pt states that she had unprotected intercourse on Dec 09 and states that she was intoxicated at the time. Pt reports that it was awful . Pt had only had sex once and has only been with one partner. Pt has taken 10 tests that were all negative. The last test being approx 1 week ago. Pt states that she is having vaginal discharge that is white and she was having itching as well. States that Monistat has helped. Pt states that she had been burning with urination as well and has been taking cranberry tablets that have helped with that as well. LMP: 11/13/2017. Pt states that she spotted this month for 4 days but didn't have a full period. Pt states that this was around January 08. Pt had been on contraception and Metformin in the past for PCOS but stopped around July. States that she continued to have normal periods after until just recently. Pt states that her periods are usually heavy and last approx 5 days. Micki Hanson APN [address] [place], [address], [facility] 01/21/2018 12:11:17 07/08/2018 text/html Pt presents [place] to discuss her medications. States that she stopped taking contraception because it made her too green and stopped taking Metformin because she thought her blood glucose was too low d/t feeling shaky. She stopped these medications in February. States that she has anxiety and states that it is affecting everything. States that she is having diarrhea and nausea all the time. States that thinking about eating makes her nauseous. States that she used to be a clean freak but now she is getting messier and she doesn't know what is going on. States that her motivation is decreasing and it is affecting her job. States that she has been pulled aside by her boss and asked if everything is okay. States that she has been taking care of the bills and paying for household finances. States that she is the only one with a job. She is wanting to go to college and move out but she doesn't have any money to do it because she is paying for everything. States that her mother has many mental health issues. Pt states that she is supposed to move to [facility] [place] on November 13. Micki Hanson APN [address] [place], [address], [facility] 07/24/2018 22:04:31 06/10/2020 text/html Pt is here today for irregular periods. Pt had been on Sprintec control last August of 2019 only took it for a couple of weeks and bled the entire time. Pt stopped that medicine and hasn't been on anything since. She had a regular period after that until last month. LMP: 04/24-. Periods are heavy the first day and then get address change clerk and only last for a couple of days. She didn't have a period in April. She was due May 24 according to an appt she uses. She has been having a lot of pelvic pressure/discomfort and fatigue. The pain is worse with intercourse and does have light spotting pink/brown after intercourse. States that she has been having some discharge but it has no odor. She has a hx of BV in the past. She doesn't think she has ever had issues with ovarian cysts in the past and denies any hx of kidney stones. She declines STD testing and does not feel like she has to worry about that with her current sexual partner. States that they have both been tested at the beginning of their relationship. Reports that she has taken a test last week and it was negative. States that they do nothing to prevent . She does not currently take a vitamin. Pt reports that she only wears pads and does not wear tampons, she is not concerned about a possible retained tampon. Pt reports constipation in the last couple of weeks. States that she used to go a couple times a day and now it is once every couple of days. States that she has to strain to have a bowel movement as well and it isn't as easy to have one. Pt just purchased a house and states that she also started working out at a gym 3-4 times a week. [place], [address], [facility] [employer] 06/10/2020 23:04:05 10/07/2021 text/html Pt presents for telehealth via audio and visual means with menstrual cycle being off . she is currently on her period and has been for 3-4 weeks. She has had irregular cycles in the past but the longest it has lasted is 2 weeks. Pt states that her cycle was address change clerk this time at the beginning with light cramps and then got heavier with worse cramps. Her current pain is 5/10 yesterday it was 8/10. States last Wednesday the bleeding got bad, but the past few days it has lightened up and she thinks it may be going to stop. She has taken DANA in the past, but they caused moodiness and so she stopped them. Menses was regular with DANA. States she has been under more stress lately with her job and wonders if this is the cause. She is living in [place], [place].She has been taking tylenol, ibuprofen and using a heating pad. She states that clotting is the same as a normal cycle but she has had a headache daily for 2 weeks that is not normal for her. Lina Daugherty APN [address] [place], [address], [facility] [employer] 10/07/2021 16:40:28 OBGyn Episode No OBEpisode recorded.
[2024-05-16 21:44] VITALS: BP 146/97; PULSE 89; RESP 14; TEMP 36.4; O2SAT 100
--- NOTE | 2024-05-16 22:48 | ED.UPPEXIN ---
HPI - Extremity Injury (Upper) General Chief Complaint: Extremity Injury, Upper Stated Complaint: R shoulder/ neck pain Time Seen by Provider: 05/16/24 22:07 Source: patient Mode of arrival: ambulatory Limitations: no limitations History of Present Illness HPI narrative: Patient is a 23-year-old female who presents the ED with report of right shoulder pain. Patient reports she was attempting to jump into a car on Wednesday when she fell and landed on her right side. Denies any head injury or LOC. States the next day, she began having pain throughout her right shoulder and right upper arm. Pain has since persisted. Has had difficulty performing her job due to the pain. Has taken ibuprofen without much improvement. Reports some tingling in her right fingers, denies numbness. Denies back pain. Related Data Allergies Allergy/AdvReac Type Severity Reaction Status Date / Time albuterol Allergy Swelling Verified 05/16/24 21:37 of Lip/Tongue/Throat Penicillins Allergy Difficulty Verified 05/16/24 21:37 Breathing Sulfa (Sulfonamide Allergy Hives Verified 05/16/24 21:37 Antibiotics) Review of Systems Review of Systems: All systems reviewed & are unremarkable except as noted in HPI. All systems reviewed & are unremarkable except as noted in HPI and below PMFSH Past Medical History Medical History No pertinent past medical history Surgical History Surgical History History of ankle surgery (~2019) right ankle H/O eye surgery Status post ORIF of fracture of ankle Social History Social History Smoking status: Never smoker Alcohol intake: never Substance use: never Exam Narrative: GENERAL: Well appearing, morbidly obese with BMI of 42.4, non-toxic, in no acute distress. HEAD: Normocephalic, atraumatic. RESPIRATORY: Airway patent, respirations nonlabored. CARDIOVASCULAR: Regular rate and rhythm. Radial pulses strong and easily palpable. MUSCULOSKELETAL: No gross deformities. Limited range of motion of right shoulder abduction and flexion past 90? due to pain. Tenderness to palpation diffusely throughout right shoulder joint, worse throughout anterior region. Mild tenderness throughout mid right humerus. No significant swelling. Sensation intact throughout extremity. No tenderness throughout cervical or thoracic midline spine. SKIN: Warm, dry, normal color. NEURO: A&O X3. Speech clear. No ataxic movements. PSYCHIATRIC: Appropriate mood and affect. Normal interaction. Course Vital Signs Vital signs: Vital Signs Temperature 97.6 F 05/16/24 21:44 Pulse Rate 89 05/16/24 21:44 Respiratory Rate 14 05/16/24 21:44 Blood Pressure 146/97 H 05/16/24 21:44 Pulse Oximetry 100 05/16/24 21:44 Temperature 97.6 F 05/16/24 21:44 Pulse Rate 89 05/16/24 21:44 Respiratory Rate 14 05/16/24 21:44 Blood Pressure 146/97 H 05/16/24 21:44 Pulse Oximetry 100 05/16/24 21:44 MDM - Extremity Injury (Upper) MDM Narrative Medical decision making narrative: Patient's injury is consistent with musculoskeletal etiology. No signs of neurologic or vascular compromise on physical examination. Compartments are soft without signs of compartment syndrome. XR of right shoulder and right humerus without acute abnormality. Pain is consistent with R shoulder strain. Discussed possibility of rotator cuff injury. Patient given sling for comfort and support. Will refer to orthopedics for further evaluation if needed. Discussed rice therapy, return precautions. Patient in agreement with plan. Discharged in stable condition. Medical Records Attestation: I reviewed the patient's medical records. Imaging Data Attestation: I personally reviewed and interpreted this imaging study as follows: Radiologist's impression: ITS Impressions Humerus X-Ray 05/16/24 22:40 IMPRESSION: No acute osseous finding in the right shoulder or right humerus. Shoulder X-Ray 05/16/24 22:40 IMPRESSION: No acute osseous finding in the right shoulder or right humerus. Discharge Plan Discharge Clinical Impression: Strain of right shoulder Patient Disposition: Home, Self-Care Condition: Stable Instructions: Antibiotic Form, Rotator Cuff Injury (ED), How to Use a Sling (ED), Shoulder Sprain (ED) Additional Instructions: Your imaging did not show any evidence of fracture. It is possible you may have strained your muscles or injured your rotator cuff. Utilize sling for comfort and support. Continue Tylenol and ibuprofen as needed for pain, ice to shoulder. Follow-up with orthopedics for further evaluation if needed. Return to the ED if you experience worsening or severe pain, recurrent injury, persistent numbness in arm, or any other symptoms of concern. Patient Language: Montenegrin Prescriptions: No Action naproxen 500 mg tablet 500 mg PO BID PRN (Reason: pain) Qty: 20 0RF Follow-up/Referrals: PHYSICIAN NOT ON STAFF,NONSTAFF [Non-Staff] - Miguel Powell MD [Physician] - (ORTHOPEDICS) Stand Alone Forms: Work/School Release IP Time of Disposition: 22:50
--- OUTSIDE RECORDS SUMMARY | 2024-05-16 22:50 | XMS_ITS | Clinical Summary ---
Author Organization [address] Address [address] [place] [address] Care Team Providers Care Sociology Professor Name Role Phone Unavailable Primary Care Provider Unavailabl e Allergies Active Allergy Reactions Criticality Noted Date Comments Albuterol Hives,Unknown,Shortn ess of breath High 03/29/2003 Penicillins Anaphylaxis,Hives,Un known High 03/29/2003 Tolerates keflex Sulfa Hives Medium 03/29/2003 Sulfa (Sulfonamide Antibiotics) Hives,Unknown Medium 04/07/2019 Medications No known medications Active Problems No known active problems Social History Tobacco Use Types Packs/Day Years Used Date Smoking Tobacco: Never Assessed Comments Unknown Sex and Gender Information Value Date Recorded Sex Assigned at Not on file Legal Sex Female 7:19 AM CDT Gender Identity Not on file Sexual Orientation Not on file Obstetrics History Plan of Treatment Health Maintenance Due Date Last Done Comments Cervical Cancer Screening 1998 Depression Screening 1998 Hepatitis C Screening 1998 Regular Well Visit/Exam 18-64 2016 DTaP/Tdap/Td Vaccine (7 - Td or Tdap) 10/25/2022 10/25/2012, 11/28/2002, 01/06/2000, Additional history exists Covid-19 Vaccine ( season) 2023 12/17/2020, 11/26/2020 Influenza Vaccine (#1) 2023 12/22/2022, 2016 Hepatitis B Screening Completed 01/06/2000 , 04/15/1999, 01/28/1999 Pneumococcal vaccine <65 Aged Out 08/16/2000, 07/27 No longer eligible based on patient's age to complete this topic Varicella Vaccines Completed 11/02/2013, 11/22/2002 HPV Vaccines Completed 05/11/2017, 12/27, 10/29/2016
--- OUTSIDE RECORDS SUMMARY | 2024-05-16 22:50 | XMS_ITS | Referral Summary ---
Author Organization [address] Address [address] [place] [address] Care Team Providers Care Supervisor [employer] Name Role Phone Unavailable Primary Care Provider [...] on file Sexual Orientation Not on file Plan of Treatment Not on file
== END 2024-05-16 23:03 | disposition home or self-care (01) ==
PROVIDERS: Emergency Provider Physician Assistant
DX: S46.911A Strain of unspecified muscle, fascia and tendon at shoulder and upper arm level, right arm, initial encounter (principal); V48.4XXA Person boarding or alighting a car injured in noncollision transport accident, initial encounter
CPT/HCPCS: 73030; 73060; 99283; A4565

== ENCOUNTER 2024-10-02 19:27 | Emergency (ER) | payer SELFPAY ==
[2024-10-02 19:30] VITALS: BP 136/95; PULSE 73; RESP 16; TEMP 36.2; O2SAT 100
--- NOTE | 2024-10-02 21:01 | ED.DENTAL ---
HPI - Dental/Oral General Chief complaint: Dental/Oral Stated complaint: Tooth Pain Time Seen by Provider: 10/02/24 20:05 Source: patient and RN notes reviewed Mode of arrival: ambulatory Limitations: no limitations History of Present Illness HPI Narrative: Patient presents today complaining of a 2 day history of left upper wisdom tooth pain and gum swelling. If currently rates her pain 8/10 and has tried ibuprofen, mouthwash, and salt water rinses without much improvement. She denies fever, shortness of breath, difficulty swallowing, or any other additional symptoms. She has an appointment set with her dentist next month. Related Data Allergies Allergy/AdvReac Type Severity Reaction Status Date / Time albuterol Allergy Swelling Verified 10/02/24 20:22 of Lip/Tongue/Throat Penicillins Allergy Difficulty Verified 10/02/24 20:22 Breathing Sulfa (Sulfonamide Allergy Hives Verified 10/02/24 20:22 Antibiotics) PMFSH Past Medical History Medical History No pertinent past medical history Surgical History Surgical History History of ankle surgery (~2019) right ankle H/O eye surgery Status post ORIF of fracture of ankle Social History Social History Smoking status: Never smoker Alcohol intake: never Substance use: never Comments At time of signature, I have reviewed and agree with nursing past medical, surgical, social and family history unless otherwise noted. Please see nursing chart for further information. There is no relevant family history pertinent to the presenting complaint Exam Narrative: GENERAL: Well-appearing, well-nourished, and in no acute distress. HEAD: Normocephalic, atraumatic. EYES: EOMI. No redness or drainage. Conjunctivae normal. ENT: Mucous membranes pink and moist. Throat normal. Uvula midline. Tooth 16 is erupting with surrounding swollen gingiva. No facial swelling noted. No obvious periapical abscess. No trismus. NECK: Normal AROM. Supple. No lymphadenopathy. CHEST: No respiratory distress. EXTREMITIES: Normal range of motion. No edema. SKIN: Warm, dry, no rash. Capillary refill normal. Normal skin turgor. NEURO: No focal deficits. Alert and oriented x3. Gait steady. PSYCH: Normal affect. No signs of depression or anxiety. Course Course Level of Care: Express Care Visit Vital Signs Vital signs: Vital Signs Temperature 97.1 F L 10/02/24 19:30 Pulse Rate 73 10/02/24 19:30 Respiratory Rate 16 10/02/24 19:30 Blood Pressure 136/95 H 10/02/24 19:30 Pulse Oximetry 100 10/02/24 19:30 Oxygen Delivery Room Air 10/02/24 19:30 Temperature 97.1 F L 10/02/24 19:30 Pulse Rate 73 10/02/24 19:30 Respiratory Rate 16 10/02/24 19:30 Blood Pressure 136/95 H 10/02/24 19:30 Pulse Oximetry 100 10/02/24 19:30 Oxygen Delivery Room Air 10/02/24 19:30 Reviewed MDM - Dental/Oral MDM Narrative Medical decision making narrative: 23-year-old female patient complaining of left upper wisdom tooth pain due to tooth erupting. Denies any additional symptoms. She has an appointment in 1 month with her dentist. Dlsr-ive-chhsyfo treatment has not been helping. Prescription for clindamycin sent to pharmacy for presumed infection. Vital signs stable. Anticipatory guidance given. Differential Diagnosis Differential diagnosis: Likely gingival abscess, dental caries, toothache and dental abscess Critical Care Time Critical Care Time Critical Care Time: No Discharge Plan Discharge Clinical Impression: Dental infection Patient Disposition: Home Condition: Stable Instructions: Antibiotic Form Additional Instructions: Please take the clindamycin as prescribed. Follow-up with your dentist as soon as possible. As discussed, if symptoms worsen to include fever, significant facial swelling, shortness of breath, or difficulty swallowing, please go to the ER immediately for further evaluation. Your blood pressure was elevated above 120/80 today at Urgent Care. This puts you above the threshold for follow up. Please schedule a followup visit with your personal physician as soon as possible, for further evaluation and treatment. Even blood pressure exceeding 120/80 may indicate pre-hypertension. Patient Language: Wolof Prescriptions: New clindamycin HCl 300 mg capsule 300 mg PO Q6H 10 Days Qty: 40 0RF No Action naproxen 500 mg tablet 500 mg PO BID PRN (Reason: pain) Qty: 20 0RF Follow-up/Referrals: PHYSICIAN,PIE TOPPER [Primary Care Provider] - Stand Alone Forms: Work/School Release IP Time of Disposition: 20:11
== END 2024-10-02 20:17 | disposition home or self-care (01) ==
PROVIDERS: Emergency Provider Nurse Practitioner
DX: K04.7 Periapical abscess without sinus (principal)
CPT/HCPCS: 99213; G0463

== ENCOUNTER 2024-12-25 23:21 | Emergency (ER) | payer SELFPAY ==
--- NOTE | ~2024-12-25 | CT_ITS ---
CT abdomen pelvis w con Clinical History: RUQ abd pain, /nv/d . Comparison: None Technique: Axial images lung bases to symphysis pubis 100 mL Omnipaque 350 Coronal, sagittal reformats CT images acquired with automatic exposure control for dose reduction DLP: 1387 mGy-cm Findings: Lung bases: Clear. Visualized heart and pericardium: Unremarkable. Liver: Unremarkable. Gallbladder: Small stone not excluded. Spleen: Unremarkable. Pancreas: Unremarkable. Adrenal glands: Unremarkable. Kidneys: Right kidney- No hydronephrosis. No renal stones. Left kidney- No hydronephrosis. No renal stones. Distal esophagus/stomach: Unremarkable. Small bowel loops: Normal caliber and wall thickness. Colon: Diverticula. Apparent wall thickening distal segments but under distended. Normal RLQ appendix. Nodes: No enlarged nodes. Peritoneum: No ascites. No free air. Urinary bladder: Unremarkable. Uterus: Unremarkable. Adnexa: No masses. Bones: No acute bony abnormality. Soft tissues: Unremarkable. Aorta: No aneurysm or dissection. IVC: Unremarkable. Main portal vein/SMV/splenic vein: Patent. IMPRESSION: 1. No acute findings. Reviewed, dictated and finalized at location R. IMPRESSION: 1. No acute findings.
--- NOTE | 2024-12-25 23:26 | ECG_ITS ---
Test Date: 2024-12-25 23:32:50 Measurements Intervals [place] Rate: 89 P: 28 SD: 175 QRS: 22 QRSD: 90 T: 44 QT: 327 QTc: 398 Interpretive Statements SINUS RHYTHM LOW QRS VOLTAGE IN PRECORDIAL LEADS [QRS DEFLECTION < 1.0 mV IN CHEST LEADS] No previous ECG available for comparison Electronically Signed On 12-26-2024 06:03:51 CDT by Kaylan Onofre M.D.
[2024-12-25 23:27] VITALS: BP 140/91; PULSE 101; RESP 15; TEMP 36.7; O2SAT 99
[2024-12-25 23:42] LABS: Hematocrit 39.0 % (37.0-47.0); Hemoglobin 12.6 g/dL (12.0-15.0); Immature Granulocyte Percent A 0.4 % (0-0.5); Lymphocytes Absolute Auto 4.16 K/mm3 (0.9-3.2); Mean Corpuscular HGB Conc 32.3 g/dl (32-36); Mean Corpuscular Hemoglobin 29.6 pg (26-34); Mean Corpuscular Volume 91.8 fl (80-100); Nucleated Red Blood Cells Absolute Auto 0.000 K/mm3 (0.0-0.012); Nucleated Red Blood Cells Perc 0.0 % (0.0-0.2); Platelet Count Result 371 k/mm3 (150-375); Red Blood Count 4.25 M/mm3 (4.2-5.4); White Blood Count 13.7 K/mm3 (4.5-10.0)
[2024-12-25 23:55] VITALS: PULSE 94; O2SAT 99
[2024-12-25 23:58] VITALS: BP 128/81; PULSE 93; RESP 17; O2SAT 99
[2024-12-26] VITALS (10 sets, daily range): BP systolic 120–123; BP diastolic 85–91; PULSE 65–91; RESP 13–20; O2SAT 98–100
[2024-12-26] MEDS: SODIUM CHLORIDE 0.9% IV 1,000 ML 999 ML IV CONT (00:16)
[2024-12-26 00:19] LABS: BEDSIDEPREGUCG Negative (Negative)
[2024-12-26 00:25] LABS: Alanine Aminotransferase 31 U/L (6-35); Albumin Level 4.5 g/dL (3.5-5.1); Alkaline Phosphatase 74 U/L (38-126); Anion Gap 9 mmol/L (4-12); Aspartate Amino Transferase 45 U/L (14-36); Bilirubin,Total 0.3 mg/dL (0.2-1.3); Blood Urea Nitrogen 13 mg/dL (7-17); Calcium 9.1 mg/dL (8.4-10.2); Carbon Dioxide 24 mmol/L (22-30); Chloride 103 mmol/L (98-107); Estimated CRCL calculation 159 ml/min; Estimated Glomerular Filt Rate > 60; Glucose 134 mg/dL (65-110); Lipase 80 U/L (23-300); Potassium 4.0 mmol/L (3.4-5.0); Sodium 136 mmol/L (137-145); Total Protein 8.0 g/dL (6.3-8.2); Troponin I < 0.012 ng/mL (0.000-0.034)
[2024-12-26 00:34] LABS: Add Urine Microscopic? YES; Appearance Urine Clear (Clear); Glucose Urine UA Negative (Negative); Leukocyte Esterase Ur Trace LEU/UL (Negative); Need Manual Microscopic Reviewed; Nitrate Urine Negative (Negative); Non Pathogenic Casts 0-2; Specific Grav Ur 1.017 (1.001-1.035)
--- NOTE | 2024-12-26 01:30 | ED.NAVMDI ---
HPI - Nausea/Vomiting/Diarrhea General Chief complaint: Nausea/Vomiting/Diarrhea Stated complaint: vomiting/diarrhea, epigastric pain Time Seen by Provider: 12/25/24 23:27 Source: patient Mode of arrival: ambulatory Limitations: no limitations History of Present Illness HPI Narrative: Patient is a 24-year-old female who presents the ED with report of right upper abdominal pain. Patient reports having pain throughout her right upper abdomen, radiating through to her back for the past 2 days. Reports yesterday she mostly ate [place] yogurt, beef jerky, protein meals, and cheese but continued to have pain. States today she ate a cheeseburger and developed worsening pain afterwards. Attempted gas-x and pepto bismol w/o improvement. Reports N/V/D, denies fevers. Does have hx of gallstones. Related Data Home Medications ?Medication ?Instructions ?Recorded ?Confirmed ?Last Taken ?Type No Home Medications 12/25/24 12/25/24 Unknown History Allergies Allergy/AdvReac Type Severity Reaction Status Date / Time albuterol Allergy Swelling Verified 12/25/24 23:32 of Lip/Tongue/Throat Penicillins Allergy Difficulty Verified 12/25/24 23:32 Breathing Sulfa (Sulfonamide Allergy Hives Verified 12/25/24 23:32 Antibiotics) ciprofloxacin (From Cipro) AdvReac Intermediate Nausea Verified 12/25/24 23:32 Review of Systems Review of Systems: All systems reviewed & are unremarkable except as noted in HPI. All systems reviewed & are unremarkable except as noted in HPI and below PMFSH Past Medical History Medical History No pertinent past medical history Surgical History Surgical History History of ankle surgery (~2019) right ankle H/O eye surgery Status post ORIF of fracture of ankle Social History Social History Smoking status: Never smoker Alcohol intake: never Substance use: never Exam Narrative: GENERAL: Well appearing, morbidly obese with BMI of 40.4, non-toxic, in no acute distress. HEAD: Normocephalic, atraumatic. RESPIRATORY: Airway patent, respirations nonlabored. Clear to auscultation bilaterally, no rales, rhonchi, wheezing. CARDIOVASCULAR: Regular rate and rhythm without murmurs, rubs, or gallops. ABDOMINAL: Soft, TTP in RUQ, no rebound, nondistended. Normoactive BS. MUSCULOSKELETAL: Moves all extremities. No gross deformities. SKIN: Warm, dry, normal color. NEURO: A&O X3. Speech clear. Steady gait. No ataxic movements. PSYCHIATRIC: Appropriate mood and affect. Normal interaction. Course Vital Signs Vital signs: Vital Signs Temperature 98.1 F 12/25/24 23:27 Pulse Rate 101 H 12/25/24 23:27 Respiratory Rate 15 12/25/24 23:27 Blood Pressure 140/91 H 12/25/24 23:27 Pulse Oximetry 99 12/25/24 23:27 Oxygen Delivery Room Air 12/25/24 23:27 Temperature 98.1 F 12/25/24 23:27 Pulse Rate 79 12/26/24 01:00 Respiratory Rate 18 12/26/24 01:00 Blood Pressure 120/85 12/26/24 00:01 Pulse Oximetry 100 12/26/24 01:00 Oxygen Delivery Room Air 12/25/24 23:27 MDM - Nausea/Vomiting/Diarrhea MDM Narrative Medical decision making narrative: Patient presented to ED with 2 day history of right upper quadrant abdominal pain. Worse with eating. History of gallstones. Vital signs are stable upon arrival. Afebrile. Patient is in no acute distress. Did not want anything for pain. Laboratory studies with white blood cell count of 13.7. Patient did report vomiting prior to arrival. May be in part reactive. CMP fairly unremarkable. AST is minimally elevated to 45, remainder of LFTs are within normal range. Lipase within normal range. EKG without ischemic changes. Troponin undetectable. UA without signs of infection. Urine is negative. Viral swabs negative. CT scan of the abdomen/pelvis was obtained and without acute findings. Personal visualization of imaging does show evidence of gallstones. Discussed lab and imaging findings with patient. She has remained stable throughout ED stay. Pain is controlled at this time without intervention. Discussed likelihood of biliary colic and continued management of such. Discussed low-fat diet, close follow-up with General surgery for further evaluation and potential future elective cholecystectomy. Offered pain medication for home, however patient politely declined. She does have Zofran at home that she can use if needed. Discussed return precautions. Patient voiced understanding. She is in agreement with plan and feels comfortable going home. Discharged in stable condition. Medical Records Attestation: I reviewed the patient's medical records. Lab Data Attestation: I reviewed the patient's lab results. 12/25/24 23:34 12/25/24 23:55 Labs: Lab Results 12/25/24 12/25/24 12/26/24 Range/Units 23:34 23:55 00:17 WBC 13.7 H (4.5-10.0) K/mm3 RBC 4.25 (4.2-5.4) M/mm3 Hgb 12.6 (12.0-15.0) g/dL Hct 39.0 (37.0-47.0) % MCV 91.8 (80-100) fl MCH 29.6 (26-34) pg MCHC 32.3 (32-36) g/dl RDW 12.6 (11.5-14.5) % Plt Count 371 (150-375) k/mm3 MPV 10.0 (7.4-10.4) fl Immature Gran % (Auto) 0.4 (0-0.5) % Neut % (Auto) 63.4 (45.5-73.1) % Lymph % (Auto) 30.3 (18.3-44.2) % [place] % (Auto) 5.2 (2.6-8.5) % Eos % (Auto) 0.4 (0-4.4) % Baso % (Auto) 0.3 (0.2-1.2) % Lymph # (Auto) 4.16 H (0.9-3.2) K/mm3 [place] # (Auto) 0.7 H (0.1-0.6) K/mm3 Eos # (Auto) 0.1 (0-0.3) K/mm3 Baso # (Auto) 0.0 (0.0-0.1) K/mm3 Abs Immat Gran (auto) 0.05 H (0.00-0.031) K/mm3 Absolute Neuts (auto) 8.7 H (1.3-6.7) K/mm3 Absolute Nucleated RBC 0.000 (0.0-0.012) K/mm3 Nucleated RBC % 0.0 (0.0-0.2) % Sodium 136 L (137-145) mmol/L Potassium 4.0 (3.4-5.0) mmol/L Chloride 103 (98-107) mmol/L Carbon Dioxide 24 (22-30) mmol/L Anion Gap 9 (4-12) mmol/L BUN 13 (7-17) mg/dL Creatinine 0.58 L (0.7-1.0) mg/dL Estim Creat Clear Calc 159 ml/min Estimated GFR > 60 (59 - ) Glucose 134 H (65-110) mg/dL Calcium 9.1 (8.4-10.2) mg/dL Total Bilirubin 0.3 (0.2-1.3) mg/dL AST 45 H (14-36) U/L ALT 31 (6-35) U/L Alkaline Phosphatase 74 (38-126) U/L Troponin I < 0.012 (0.000-0.034) ng/mL Total Protein 8.0 (6.3-8.2) g/dL Albumin 4.5 (3.5-5.1) g/dL Lipase 80 (23-300) U/L Urine Color Yellow (Yellow) Urine Appearance Clear (Clear) Urine pH >=9.0 H (5.0-9.0) Ur Specific [place] 1.017 (1.001-1.035) Urine Protein Trace (Negative) mg/dL Urine Glucose (UA) Negative (Negative) mg/dL Urine Ketones Negative (Negative) mg/dL Ur Blood (Man) 2+ H (Negative) Urine Nitrate Negative (Negative) Urine Bilirubin Negative (Negative) Urine Urobilinogen 0.2 (<2.0) mg/dL Add Ur Microanalysis Reviewed Leukocyte Esterase Rfl Trace H (Negative) JUAN JOSE/UL Urine RBC 6-10 H (0-2) /hpf Urine WBC 0-5 (0-3) /hpf Ur Squamous Epith Cells Few (Few) /hpf Urine Bacteria Rare /hpf Urine Casts 0-2 POC Urine HCG, Qual Negative (Negative) Influenza A (RT-PCR) (Negative) Influenza B (RT-PCR) (Negative) RSV (RT-PCR) (Negative) SARS-CoV-2 RNA (RT-PCR) (Negative) 09/30/25 Range/Units 00:52 WBC (4.5-10.0) K/mm3 RBC (4.2-5.4) M/mm3 Hgb (12.0-15.0) g/dL Hct (37.0-47.0) % MCV (80-100) fl MCH (26-34) pg MCHC (32-36) g/dl RDW (11.5-14.5) % Plt Count (150-375) k/mm3 MPV (7.4-10.4) fl Immature Gran % (Auto) (0-0.5) % Neut % (Auto) (45.5-73.1) % Lymph % (Auto) (18.3-44.2) % [place] % (Auto) (2.6-8.5) % Eos % (Auto) (0-4.4) % Baso % (Auto) (0.2-1.2) % Lymph # (Auto) (0.9-3.2) K/mm3 [place] # (Auto) (0.1-0.6) K/mm3 Eos # (Auto) (0-0.3) K/mm3 Baso # (Auto) (0.0-0.1) K/mm3 Abs Immat Gran (auto) (0.00-0.031) K/mm3 Absolute Neuts (auto) (1.3-6.7) K/mm3 Absolute Nucleated RBC (0.0-0.012) K/mm3 Nucleated RBC % (0.0-0.2) % Sodium (137-145) mmol/L Potassium (3.4-5.0) mmol/L Chloride (98-107) mmol/L Carbon Dioxide (22-30) mmol/L Anion Gap (4-12) mmol/L BUN (7-17) mg/dL Creatinine (0.7-1.0) mg/dL Estim Creat Clear Calc ml/min Estimated GFR (59 - ) Glucose (65-110) mg/dL Calcium (8.4-10.2) mg/dL Total Bilirubin (0.2-1.3) mg/dL AST (14-36) U/L ALT (6-35) U/L Alkaline Phosphatase (38-126) U/L Troponin I (0.000-0.034) ng/mL Total Protein (6.3-8.2) g/dL Albumin (3.5-5.1) g/dL Lipase (23-300) U/L Urine Color (Yellow) Urine Appearance (Clear) Urine pH (5.0-9.0) Ur Specific [place] (1.001-1.035) Urine Protein (Negative) mg/dL Urine Glucose (UA) (Negative) mg/dL Urine Ketones (Negative) mg/dL Ur Blood (Man) (Negative) Urine Nitrate (Negative) Urine Bilirubin (Negative) Urine Urobilinogen (<2.0) mg/dL Add Ur Microanalysis Leukocyte Esterase Rfl (Negative) JUAN JOSE/UL Urine RBC (0-2) /hpf Urine WBC (0-3) /hpf Ur Squamous Epith Cells (Few) /hpf Urine Bacteria /hpf Urine Casts POC Urine HCG, Qual (Negative) Influenza A (RT-PCR) Negative (Negative) Influenza B (RT-PCR) Negative (Negative) RSV (RT-PCR) Negative (Negative) SARS-CoV-2 RNA (RT-PCR) Negative (Negative) Imaging Data Attestation: I personally reviewed and interpreted this imaging study as follows: Radiologist's impression: STAT RAD CT abd/pelvis: Impression: No acute findings. ECG Data EKG #1: Attestation: I personally reviewed and interpreted this ECG as follows: ECG completion date: 12/25/24 ECG completion time: 23:32 EKG Interpretation: normal rate (89), sinus rhythm and no ST changes Discharge Plan Discharge Clinical Impression: Biliary colic, Gallstones Patient Disposition: Home Condition: Stable Instructions: Antibiotic Form, Biliary Colic (ED), Gallstones (ED), Low Fat Diet (ED) Additional Instructions: Recommend low-fat diet. Recommend Tylenol/ibuprofen if needed for further pain. Zofran as needed for nausea. Follow-up with General surgery for further evaluation of gallbladder. Call office to make appointment. Return to the ED if you experience worsening or severe pain, unable to keep down food or drink, persistent fevers, difficulty breathing, or any other symptoms of concern. Patient Language: Latvian Prescriptions: No Action No Home Medications Follow-up/Referrals: Janice Huang MD [Physician, General Surgery] Referral Note: GENERAL SURGERY PHYSICIAN,MANAGER REGIONAL [Primary Care Provider, Internal Medicine] Sha Barragan MD [Physician, Family Practice] Referral Note: PRIMARY CARE Time of Disposition: 02:08
[2024-12-26 02:00] LABS: Influenza A QL RT-PCR Negative (Negative); Influenza B QL RT-PCR Negative (Negative); RSV RNA, RT-PCR Negative (Negative); SARS-CoV-2 RNA PCR Negative (Negative)
== END 2024-12-26 02:21 | disposition home or self-care (01) ==
PROVIDERS: Student in an Organized Health Care Education/Training Program; Emergency Provider Physician Assistant
DX: K80.20 Calculus of gallbladder without cholecystitis without obstruction (principal); Z20.822 Contact with and (suspected) exposure to COVID-19
CPT/HCPCS: 36415; 74177; 80053; 81001; 81025; 83690; 84484; 85025; 87637; 93005; 96360; 99284; J7030; Q9967

== ENCOUNTER 2025-01-31 13:58 | Outpatient (CLI) | payer BC, SELFPAY ==
[2025-01-31 14:36] LABS: Amylase 59 U/L (30-110)
--- OUTSIDE RECORDS SUMMARY | 2025-02-01 13:32 | XMS_ITS | Clinical Summary ---
Author Organization [facility] [address] [facility] Address [address] [place] [address] Care Team Providers Care Planer Mill Grader Name Role Phone Prabhakar Perea DO Primary Care Provider Allergies Active Allergy Reactions Criticality Noted Date [...] Orientation Not on file Plan of Treatment Health Maintenance Due Date Last Done Comments Cervical Cancer Screening 1998 Depression Screening 1998 Hepatitis C Screening 1998 Regular Well Visit/Exam 18-64 2016 DTaP/Tdap/Td Vaccine (7 - Td or Tdap) 10/25/2022 10/25/2012, 11/28/2002, 01/06/2000, Additional history exists Covid-19 Vaccine ( season) 2024 12/17/2020, 11/26/2020 Influenza Vaccine (#1) 2024 12/22/2022, 2016 Hepatitis B Screening Completed 01/06/2000 , 04/15/1999, 01/28/1999 Pneumococcal vaccine <65 Aged Out 08/16/2000, 07/27 No longer eligible based on patient's age to complete this topic Varicella Vaccines Completed 11/02/2013, 11/22/2002 HPV Vaccines Completed 05/11/2017, 12/27, 10/29/2016 Care Teams Planer Mill Grader Relationship Specialty Start Date End Date Prabhakar Perea DO PCP - General Orthopedic Surgery 05/19/24
== END 2025-01-31 13:59 | disposition home or self-care (01) ==
LOC: ANHSURGERY 14:01
PROVIDERS: Visit Provider Surgery
DX: K80.10 Calculus of gallbladder with chronic cholecystitis without obstruction (principal); Z01.818 Encounter for other preprocedural examination
CPT/HCPCS: 36415; 82150; 86850; 86900; 86901

== ENCOUNTER 2025-02-05 01:32 | Day surgery (SDC) | payer BC, SELFPAY ==
--- NOTE | 2025-01-23 10:30 | SUR.PREOP ---
[facility] has started construction of its new state of the art ER which will open Spring 2026. With this, we anticipate parking may be a challenge for some our surgical patients and families. Parking spaces are limited but are available for all Surgical, obstetrics, and ER patients sharing this lot. If you arrive and find you are having a hard time finding a parking space, please note that we understand the challenges, please drive around the hospital and park near Hospital Entrance 1. When you enter this entrance, you can ask a volunteer to direct or take you back to the surgical waiting area to check in. We appreciate everyone?s understanding of these expected challenges while we build for your future. Report to the Outpatient Waiting Room, entrance under the green pavilion located off [address], at time _11AM___ on date _02/05/25__. Planned Procedure Time: __1PM___.? Time changes happen often and if your time is changed the preop area will call you the afternoon before. - You and your visitor will be asked to self-screen and do not enter if you have any COVID symptoms. Please call surgeon if you need to reschedule. - A mask is optional within the hospital at this time. Patients may have clear liquids (water, carbonated beverages, clear teas, apple juice) until 3 hours prior to surgery with a maximum of 20 ounces. - No food from midnight until time of surgery and no smoking, or chewing tobacco (or any form of nicotine). No chewing gum, candy or mints. Take only the following medications with a SIP of water on the morning of surgery: __None___ DO NOT STOP ANY OF YOUR OTHER PRESCRIPTION MEDICATIONS PRIOR TO SURGERY EXCEPT THE FOLLOWING Hold all vitamins and supplements for 3 days per anesthesiologist. Medications to discontinue per physician __none__ Date to take last dose vitamins__02/01/25___ Please no make-up, nail mongolian, hairspray, perfume, deodorant, or body powder the day of surgery.? No jewelry (including any body piercings) or valuables the day of surgery, leave them at home.? Please take a shower or bath the night before, or the morning of, surgery with an antibacterial soap.? Wear comfortable, loose fitting clothing.? - Jewelry must be removed prior to entering the operating room.? Rings and piercings that are not removed may be cut off. - The hospital will not accept responsibility for valuables.? - Please leave all valuables, including medications, at home the day of surgery. If you are going home after surgery, a licensed services delivery driver must drive you home.? - NO public transportation without another adult if you receive anesthesia. - We recommend that an adult stay with you for 24 hours following discharge. - We also recommend that you do not drive, make important decision, drink alcoholic beverages, or take any drugs that were not prescribed by your health care provider for at least 24 hours after your discharge time. For Pediatric surgeries, we recommend two adults accompany the child home. Follow any additional instructions given to you from your surgeon. Telephone instructions given to __Marleni___and asked if any additional questions and then verbalized understanding. Patient advised to call surgeon office or pre surgery nurse liaison [phone] if any additional questions.
[2025-01-23 10:35] VITALS: BMI 41.3
[2025-02-05] VITALS (10 sets, daily range): BP systolic 123–136; BP diastolic 64–79; PULSE 81–94; RESP 15–20; TEMP 36.1–37.2; O2SAT 97–100; BMI 41.4
--- OUTSIDE RECORDS SUMMARY | 2025-02-05 01:34 | XMS_ITS | Clinical Summary ---
Author Organization [facility] [address] [facility] Address [address] [place] [address] Care Team Providers Care Rn Clinical Trials Name Role Phone Prabhakar Perea DO Primary [...] Vaccines Completed 05/11/2017, 12/27, 10/29/2016 Care Teams Rn Clinical Trials Relationship Specialty Start Date End Date Prabhakar Perea DO PCP - General Orthopedic Surgery 05/19/24
[2025-02-05] MEDS: LACTATED RINGERS 1,000 ML 30 ML IV CONT (12:00)
[2025-02-05] MEDS: KETOROLAC 15 MG/ML VIAL (*BKC) IV PUSH (12:19)
[2025-02-05] MEDS: ACETAMINOPHEN 500 MG TABLET 1000 MG PO (12:19)
[2025-02-05] MEDS: SCOPOLAMINE 1 MG PATCH 1 PATCH TRANSDERM (12:22)
[2025-02-05] MEDS: INDOCYANINE GREEN 25 MG VIAL WITH DILUENT 3.75 MG IV PUSH (12:24)
--- NOTE | 2025-02-05 13:09 | WPDANESEPPF ---
Anes - Initial Pre Proc Eval Procedure: Operation Date: 02/05/25 13:00 Proposed Procedures p Laparoscopic Robotic Cholecystectomy - Janice Huang MD Date/Time: 02/05/25 13:09 Surgeon: Janice Huang MD Pre Op Diagnosis: Chronic Calculus Cholecystitis Patient Data Age: 24 Gender: F Height: 1.68 m Weight: 116.3 kg Allergies Allergy/AdvReac Type Severity Reaction Status Date / Time albuterol Allergy Swelling Verified 01/23/25 10:34 of Lip/Tongue/Throat Penicillins Allergy Difficulty Verified 01/23/25 10:34 Breathing Sulfa (Sulfonamide Allergy Hives Verified 01/23/25 10:34 Antibiotics) ciprofloxacin (From Cipro) AdvReac Intermediate Nausea Verified 01/23/25 10:34 Home Medications ?Medication ?Instructions ?Recorded ?Confirmed ?Type Saccharomyces boulardii 250 mg 250 mg PO DAILY 01/23/25 01/23/25 History capsule (Daily Probiotic (S. boulardii)) Patient hx anesthesia problems: none Family hx anesthesia problems: none Results Review: All pre-operative results and documents have been reviewed as part of the pre-operative evaluation. [facility] Past Medical History Medical History Hx of irritable bowel syndrome Hx of gastroesophageal reflux (GERD) History of anxiety No pertinent past medical history Surgical History Surgical History History of ankle surgery (~2019) right ankle H/O eye surgery Status post ORIF of fracture of ankle Family History Family History Mother Depression Father Depression Heart disease Hypertension Social History Social History Smoking status: Never smoker Alcohol intake: never Substance use: never Living arrangements: with friend(s) Spiritual care concerns: No Anes - Eval Final PreProcedure Day of Procedure 02/05/25 13:09 Patient weight: morbidly obese Heart: regular rate and rhythm Lungs: clear to auscultation Airway: Mallampati scale class II Neurological: alert and oriented Last oral intake: >/= 8 hours ASA classification: III Emergent: no Anesthetic plan: proceed Anesthesia type and monitoring: general Results Review: All pre-operative results and documents have been reviewed as part of the pre-operative evaluation. Informed Consent: The patient's anesthetic plan and its attendant risks and benefits were discussed with the patient/family/POA. Questions were solicited and answers provided to the satisfaction of the patient/family/POA.
--- NOTE | 2025-02-05 13:47 | P.HP_ITS ---
H&P: HPI History of Present Illness Date/Time: 02/05/25 13:47 Chief Complaint: chronic cholecystitis, cholelithiasis Narrative: Ms. Hale is a 24-year old female, who presents to the office. She was recently seen at [facility] Emergency room on 12/25/24, with complaints of RUQ abdominal pain that radiates through her back. Also reports diarrhea and heartburn, but no nausea or vomiting. Patient reports that she found a correlation that episodes would occur when she eats fast food. She had a CT scan that was negative. Labs showed slightly elevated WBC and AST. She has had similar episodes over the last 6 months after eating dairy and fatty meals. Had an us done 1 year ago at an outside facility, which she reports showed gallstones. We do not have report for review. Review of Systems Review of Systems: All systems reviewed & are unremarkable except as noted in HPI and below PMFSH Past Medical History Medical History Hx of irritable bowel syndrome Hx of gastroesophageal reflux (GERD) History of anxiety No pertinent past medical history Surgical History Surgical History History of ankle surgery (~2019) right ankle H/O eye surgery Status post ORIF of fracture of ankle Family History Family History Mother Depression Father Depression Heart disease Hypertension Social History Social History Smoking status: Never smoker Alcohol intake: never Substance use: never Living arrangements: with friend(s) Spiritual care concerns: No Meds Home Medications and Allergies Home Medications ?Medication ?Instructions ?Recorded ?Confirmed ?Type Saccharomyces boulardii 250 mg 250 mg PO DAILY 5 01/23/25 History capsule (Daily Probiotic (S. boulardii)) Allergies Allergy/AdvReac Type Severity Reaction Status Date / Time albuterol Allergy Swelling Verified 02/05/25 13:47 of Lip/Tongue/Throat Penicillins Allergy Difficulty Verified 02/05/25 13:47 Breathing Sulfa (Sulfonamide Allergy Hives Verified 02/05/25 13:47 Antibiotics) ciprofloxacin (From Cipro) AdvReac Intermediate Nausea Verified 02/05/25 13:47 Exam Const: General: cooperative, comfortable, no acute distress and obese Resp: Auscultation: clear to auscultation bilaterally Cardio: Rate: regular rate Rhythm: regular rhythm GI: Inspection: normal to inspection, non-distended and obesity GI Palp: No abdominal tenderness, Yes Soft to palpation, No Guarding due to palpation present (GI) and No Rigid due to palpation Assessment and Plan Assessment and plan (1) Chronic calculous cholecystitis: Code(s): K80.10 - Calculus of gallbladder with chronic cholecystitis without obstruction Status: Acute Assessment and Plan: will set up for robotic assisted cholecystectomy
--- NOTE | 2025-02-05 13:49 | WPDHPUPDATE1 ---
History and Physical Update Update Date/Time: 02/05/25 13:49 History and Physical has been reviewed, including an updated exam of the patient. There are NO changes in the patient's condition. Risks, benefits, and alternatives have been discussed and questions answered. Patient agrees to proceed with procedure.
[2025-02-05] MEDS: ceFAZolin 2 GM in SODIUM CHLORIDE 0.9% IV 50 ML 100 ML IVPB (14:10)
[2025-02-05 14:21] LABS: BEDSIDEPREGUCG Negative (Negative)
[2025-02-05] MEDS: BUPIVACAINE/EPINEPHRINE 0.5% 50 ML VIAL 30 ML INFILTRATE (14:52)
--- NOTE | 2025-02-05 15:06 | S_PTH ---
PATIENT: Marleni Hale LOC: [facility] U#:[id number] AGE/SX: 24/F ROOM: RE02/05/[address]: Janice Huang MD : 2000 BED: DIS: 02/05/2025 SPEC #: [id number] RECD: 02/06/25 07:29 STATUS: JOSÉ ANTONIO CHOI #: [id number] LANDY: 02/05/25 15:[address]: Janice Huang DEPT: [facility] Surgical RECD BY: Margy Gongora ENTERED: 02/06/25 07:30 SP TYPE: Surgical OTHR DR: REGIONAL TRANSFER LIAISON PHYSICIAN Tissues: A - Gallbladder Procedures: Hematoxylin and Eosin Stain Gross and Microscopic Level 3
--- NOTE | 2025-02-05 15:30 | P.OP_ITS ---
Procedure Note - Detailed Date of Procedure 02/05/25 Pre-op Diagnosis Chronic cholecystitis with cholelithiasis Post-op Diagnosis Same Procedure Performed Robotic assisted cholecystectomy Surgeon Janice Huang MD [employer] T[employer] Dumont Anesthesia General and Local Indications 24-year-old male presenting to the office complaining of postprandial pain upper abdominal pain, bloating. Workup, including imaging, significant for chronic cholecystitis, cholelithiasis. Findings moderate cholecystitis Description of Procedure The patient was taken to the operating room and placed in the supine position. After adequate induction of general anesthesia, the patient was prepped and draped in the normal sterile fashion. A time-out was then done to verify the patient's identity, as well as the procedure being performed. I began by making a 8 mm incision in the periumbilical region. A Veress needle was then placed in the peritoneal cavity and CO2 gas was insufflated. After adequate pneumoper itoneum was achieved, the Veress needle was removed and a 8 mm Optiview trocar was placed under direct visualization. Once into the abdominal cavity, the introducer was removed and the laparoscope was placed through this trocar site. Under direct visualization, I placed a further 8 mm port in the left mid abdomen and 2 additional 8 mm ports in the right mid abdomen. The robot was then docked to these ports sites. I then went to the console. The gallbladder was then identified and noted to be moderately inflamed. I was able to place a grasper at the dome of the gallbladder and this was retracted up and over the liver. A 2nd retractor was used to grasp the infundibulum and retracted laterally. This allowed visualization and dissection of the triangle of Calot. There were some omental adhesions to the gallbladder and these were taken down with the cautery. I then began dissection around the triangle Calot. I first identified the cystic duct, I was able to visualize the entirety of the duct from its proximal insertion into the gallbladder to its distal junction with the common hepatic/common bile duct junction. I then used the firefly visualization at this point to confirm the anatomy. The proximal cystic duct was then further skeletonized, clipped, and transected. Next I visualized the cystic artery. Again the structure was skeletonized, clipped, and transected. I then again used firefly to confirm anatomy and no aberrant anatomy was noted. I then used the Bovie cautery to take down the peritoneal attachments of the gallbladder off the liver bed. Once the gallbladder specimen was completely detached, an Endo pouch was placed through the left 8 mm port site and the gallbladder specimen was placed in the endo-pouch and subsequently removed. We did slightly enlarge the incision to allow extraction of the gallbladder. I then re-examined the right upper quadrant. Hemostasis was noted in the liver bed and the clips were noted to be in good position on both the duct and the artery. No other pathology was seen in the right upper quadrant. All instruments were then removed and the robot was undocked. The abdomen was then desufflated and all ports were removed. All port sites were then closed with 4-0 Monocryl subcuticular suture. Dermabond was placed on each was wound. The patient tolerated the procedure well and was extubated in the operating room postop. The patient will now be transferred to the recovery room in stable condition. Estimated Blood Loss 5 Drains No Packing No Pathology Yes Complications No immediate complications Condition Stable Disposition PACU [facility] Billing Surgery - Charge Forward: Surgery Billing
[2025-02-05] MEDS: ONDANSETRON INJ 4 MG/2 ML VIAL IV PUSH (15:33)
[2025-02-05] MEDS: fentaNYL CITRATE INJ (*CRX) 100 MCG/2 ML VIAL 25 MCG IV PUSH ×2 (15:40→15:50)
[2025-02-05] MEDS: oxyCODONE HCL (*CRX) 5 MG TAB IR PO (17:03)
== END 2025-02-05 18:05 | disposition home or self-care (01) ==
PROVIDERS: Visit Provider Surgery
PROC: 0FT44ZZ Resection of Gallbladder, Percutaneous Endoscopic Approach (ICD-10-PCS; CPT 47562; principal; 2025-02-05 13:00)
DX: K80.20 Calculus of gallbladder without cholecystitis without obstruction (principal); K21.9 Gastro-esophageal reflux disease without esophagitis; K58.9 Irritable bowel syndrome, unspecified; F41.9 Anxiety disorder, unspecified; E66.01 Morbid (severe) obesity due to excess calories; Z68.41 Body mass index [BMI] 40.0-44.9, adult; Z98.890 Other specified postprocedural states; Z82.49 Family history of ischemic heart disease and other diseases of the circulatory system
CPT/HCPCS: 47562; S2900; 88304; J0690; A9270; J1100; J1200; J1885; J2003; J2250; J2405; J2704; J3010; J7120